=== PATIENT | male | born 1935 | race African-American/Black ===

== ENCOUNTER 2021-09-13 08:50 | Inpatient (IN) | payer MEDICARE, MEDICAID ==
[~2021-09-13] VITALS: Ht 177.8 cm; Wt 66.0 kg
[2021-09-13] VITALS (42 sets, daily range): BP systolic 109–148; BP diastolic 48–106
[~2021-09-13 08:50] MED LIST: ASPI-1497 MT; GLIP10TA10 MT; KEPP500 PO; POLY17PO3 PO; SITA25TA3 MT; SULF1TAB48 PO; TAMS-11 MT
[2021-09-13 09:27] LABS: BASOPHILS % 0.4 % (0.0-2.0); EOSINOPHILS % 0.6 % (0.0-5.0); HEMATOCRIT. 33.7 % (42.0-52.0); HEMOGLOBIN. 11.3 g/dL (14.0-18.0); LYMPHOCYTES % 37.6 % (20.0-50.0); MEAN CORPUSCULAR HEMOGLOBIN 30.8 pg (28.0-32.0); MEAN CORPUSCULAR VOLUME 91.9 fL (80.0-94.0); MEAN PLATELET VOLUME 7.5 fl (7.4-10.4); MONOCYTES % 5.1 % (2.0-8.0); NEUTROPHILS % 56.3 % (40.0-76.0); PLATELET 178 x1000/uL (130-400); RED BLOOD CELL COUNT 3.67 mill/uL (4.7-6.1); RED CELL DISTRIBUTION WIDTH 15.3 % (11.6-14.6)
[2021-09-13 09:31] LABS: CHLORIDE 103 mEq/L (98-107)
[2021-09-13] MEDS ORDERED: NICARDIPINE 100 MG in SODIUM CHLORIDE 0.9% 60 ML IV PRN ×3 (10:15→13:15)
[2021-09-13 11:23] LABS: INR 1.1; PROTHROMBIN TIME 11.9 sec (9.6-11.0)
[2021-09-13 12:32] LABS: CLARITY URINE CLEAR (CLEAR); COLOR URINE YELLOW (YELLOW); KETONES URINE NEGATIVE (NEGATIVE); LEUKOCYTE ESTERASE URINE TRACE (NEGATIVE); NITRITE URINE POSITIVE (NEGATIVE); OCCULT BLOOD URINE NEGATIVE (NEGATIVE); PROTEIN URINE 1+ (NEGATIVE); SPECIFIC GRAVITY URINE 1.012 (1.005-1.030); UROBILINOGEN URINE 0.2 E.U./dL (0.2-1.0)
[2021-09-13] MEDS ORDERED: CLONIDINE 0.1MG TABLET PO PRN (12:45)
[2021-09-13] MEDS ORDERED: ONDANSETRON HCL 4MG/2ML INJ IV PRN (12:45)
[2021-09-13] MEDS ORDERED: DIPHENHYDRAMINE 50MG/ML VIAL IV PRN (12:45)
[2021-09-13] MEDS ORDERED: SODIUM CHLORIDE 0.9% 1,000 ML IV SCH (12:45)
[2021-09-13] MEDS ORDERED: IPRATROPIUM/ALBUTEROL 0.5-3(2.5)MG/3ML NEB HHN PRN (12:45)
[2021-09-13] MEDS ORDERED: LEVETIRACETAM 500MG PREMIX 100 ML IV SCH (13:00)
[2021-09-13] MEDS ORDERED: MORPHINE SULFATE 2 MG/ML CPJ (NOT FOR IM USE) IV PRN (13:15)
[2021-09-13] MEDS ORDERED: NALOXONE HCL 0.4MG/ML VIAL IV PRN (13:30)
[2021-09-13] MEDS: DEXT 5%/LACTATED RINGERS 1,000 ML IV SCH (14:23)
[2021-09-13] MEDS: DEXAMETHASONE 4MG/ML 1ML VIAL IV SCH (17:25)
[2021-09-13] MEDS ORDERED: DEXTROSE 50% WATER 50ML SYRINGE IV PRN (18:45)
[2021-09-13] MEDS: INSULIN LISPRO 100 UNITS/ML SUBCUT SCH (21:59)
[2021-09-13] MEDS: BLOOD SUGAR DIAGNOSTIC STRIP TEST SCH (21:59)
[2021-09-14] VITALS (57 sets, daily range): BP systolic 96–153; BP diastolic 51–84
[2021-09-14] MEDS: DEXAMETHASONE 4MG/ML 1ML VIAL IV SCH ×5 (01:44→23:24)
[2021-09-14 05:38] LABS: HEMATOCRIT. 32.2 % (42.0-52.0); HEMOGLOBIN. 10.7 g/dL (14.0-18.0); LYMPHOCYTES % 27.8 % (20.0-50.0); MEAN CORPUSCULAR HEMOGLOBIN 30.5 pg (28.0-32.0); MEAN CORPUSCULAR VOLUME 92.2 fL (80.0-94.0); MEAN PLATELET VOLUME 7.8 fl (7.4-10.4); MONOCYTES % 1.2 % (2.0-8.0); PLATELET 169 x1000/uL (130-400); RED BLOOD CELL COUNT 3.49 mill/uL (4.7-6.1); RED CELL DISTRIBUTION WIDTH 15.1 % (11.6-14.6)
[2021-09-14 05:41] LABS: CHLORIDE 104 mEq/L (98-107)
[2021-09-14] MEDS: DEXT 5%/LACTATED RINGERS 1,000 ML IV SCH ×2 (06:07→13:00)
[2021-09-14] MEDS: INSULIN LISPRO 100 UNITS/ML SUBCUT SCH ×4 (06:08→20:52)
[2021-09-14] MEDS: BLOOD SUGAR DIAGNOSTIC STRIP TEST SCH ×4 (06:08→20:48)
[2021-09-14] MEDS: LEVETIRACETAM 500MG PREMIX 100 ML IV SCH ×2 (06:11→17:05)
[2021-09-14] MEDS ORDERED: MANNITOL 20% (20GM/100ML) BAG 500ML PREMIX IV ONE (07:00)
[2021-09-14] MEDS ORDERED: MANNITOL 20% (20GM/100ML) BAG 500ML PREMIX IV NR (09:15)
[2021-09-14] MEDS ORDERED: CEFTRIAXONE 1 G PREMIX 50 ML IV SCH (10:30)
[2021-09-14] MEDS: CEFTRIAXONE 1,000 MG in DEXTROSE 5% WATER 50 ML IV SCH (11:16)
[2021-09-15] VITALS (77 sets, daily range): BP systolic 107–156; BP diastolic 51–101
[2021-09-15 05:13] LABS: BASOPHILS % 0.2 % (0.0-2.0); HEMATOCRIT. 30.9 % (42.0-52.0); HEMOGLOBIN. 10.4 g/dL (14.0-18.0); LYMPHOCYTES % 17.9 % (20.0-50.0); MEAN CORPUSCULAR HEMOGLOBIN 30.8 pg (28.0-32.0); MEAN CORPUSCULAR VOLUME 91.6 fL (80.0-94.0); MEAN PLATELET VOLUME 7.9 fl (7.4-10.4); NEUTROPHILS % 80.9 % (40.0-76.0); PLATELET 154 x1000/uL (130-400); RED BLOOD CELL COUNT 3.37 mill/uL (4.7-6.1); RED CELL DISTRIBUTION WIDTH 15.3 % (11.6-14.6)
[2021-09-15 05:38] LABS: CHLORIDE 105 mEq/L (98-107)
[2021-09-15] MEDS: LEVETIRACETAM 500MG PREMIX 100 ML IV SCH ×2 (05:51→17:25)
[2021-09-15] MEDS: DEXAMETHASONE 4MG/ML 1ML VIAL IV SCH ×3 (05:51→17:25)
[2021-09-15] MEDS: BLOOD SUGAR DIAGNOSTIC STRIP TEST SCH ×4 (05:51→21:38)
[2021-09-15] MEDS: DEXT 5%/LACTATED RINGERS 1,000 ML IV SCH ×2 (05:52→23:02)
[2021-09-15] MEDS: INSULIN LISPRO 100 UNITS/ML SUBCUT SCH ×4 (06:01→21:38)
[2021-09-15] MEDS: CEFTRIAXONE 1,000 MG in DEXTROSE 5% WATER 50 ML IV SCH (12:18)
[2021-09-16] VITALS (47 sets, daily range): BP systolic 109–170; BP diastolic 53–102
[2021-09-16] MEDS: LEVETIRACETAM 500MG PREMIX 100 ML IV SCH ×2 (06:24→18:19)
[2021-09-16] MEDS: BLOOD SUGAR DIAGNOSTIC STRIP TEST SCH ×4 (06:24→21:15)
[2021-09-16] MEDS: INSULIN LISPRO 100 UNITS/ML SUBCUT SCH ×4 (06:27→21:00)
[2021-09-16] MEDS ORDERED: DEXTROSE 50% WATER 50ML SYRINGE IV PRN (11:00)
[2021-09-16] MEDS: CEFTRIAXONE 1,000 MG in DEXTROSE 5% WATER 50 ML IV SCH (12:07)
[2021-09-16] MEDS: SODIUM CHLORIDE 0.9% 1,000 ML IV SCH (12:07)
[2021-09-16] MEDS: AMLODIPINE 5MG TABLET PO SCH (13:46)
[2021-09-17] VITALS (20 sets, daily range): BP systolic 114–150; BP diastolic 58–75
[2021-09-17] MEDS: BLOOD SUGAR DIAGNOSTIC STRIP TEST SCH ×4 (06:00→20:40)
[2021-09-17] MEDS: LEVETIRACETAM 500MG PREMIX 100 ML IV SCH ×2 (06:20→17:42)
[2021-09-17] MEDS: SODIUM CHLORIDE 0.9% 1,000 ML IV SCH ×2 (06:20→21:23)
[2021-09-17] MEDS: INSULIN LISPRO 100 UNITS/ML SUBCUT SCH ×4 (06:22→21:24)
[2021-09-17 06:33] LABS: CHLORIDE 110 mEq/L (98-107)
[2021-09-17 07:40] LABS: BASOPHILS % 0.1 % (0.0-2.0); EOSINOPHILS % 0.1 % (0.0-5.0); HEMATOCRIT. 29.4 % (42.0-52.0); HEMOGLOBIN. 9.7 g/dL (14.0-18.0); LYMPHOCYTES % 29.2 % (20.0-50.0); MEAN CORPUSCULAR HEMOGLOBIN 31.2 pg (28.0-32.0); MEAN CORPUSCULAR VOLUME 94.1 fL (80.0-94.0); MEAN PLATELET VOLUME 8.7 fl (7.4-10.4); MONOCYTES % 4.8 % (2.0-8.0); NEUTROPHILS % 65.8 % (40.0-76.0); PLATELET 138 x1000/uL (130-400); RED BLOOD CELL COUNT 3.12 mill/uL (4.7-6.1); RED CELL DISTRIBUTION WIDTH 15.5 % (11.6-14.6)
[2021-09-17] MEDS: AMLODIPINE 5MG TABLET PO SCH (09:51)
[2021-09-17] MEDS: HYDRALAZINE HCL 25MG TABLET PO SCH ×2 (12:30→20:57)
[2021-09-17] MEDS ORDERED: DOPAMINE 400MG/250ML PREMIX 250 ML IV PRN (12:45)
[2021-09-18] VITALS (12 sets, daily range): BP systolic 127–159; BP diastolic 64–74
[2021-09-18 06:22] LABS: BASOPHILS % 0.1 % (0.0-2.0); EOSINOPHILS % 0.6 % (0.0-5.0); HEMATOCRIT. 30.1 % (42.0-52.0); HEMOGLOBIN. 10.2 g/dL (14.0-18.0); LYMPHOCYTES % 41.8 % (20.0-50.0); MEAN CORPUSCULAR VOLUME 91.6 fL (80.0-94.0); MEAN PLATELET VOLUME 7.9 fl (7.4-10.4); MONOCYTES % 5.5 % (2.0-8.0); PLATELET 140 x1000/uL (130-400); RED BLOOD CELL COUNT 3.29 mill/uL (4.7-6.1); RED CELL DISTRIBUTION WIDTH 14.6 % (11.6-14.6)
[2021-09-18 06:34] LABS: CHLORIDE 104 mEq/L (98-107)
[2021-09-18] MEDS: BLOOD SUGAR DIAGNOSTIC STRIP TEST SCH ×4 (07:35→20:15)
[2021-09-18] MEDS: INSULIN LISPRO 100 UNITS/ML SUBCUT SCH ×4 (08:42→20:43)
[2021-09-18] MEDS: HYDRALAZINE HCL 25MG TABLET PO SCH ×2 (08:51→20:43)
[2021-09-18] MEDS: LEVETIRACETAM 500MG PREMIX 100 ML IV SCH ×2 (08:51→20:42)
[2021-09-18] MEDS: AMLODIPINE 5MG TABLET PO SCH (08:51)
[2021-09-18] MEDS ORDERED: POTASSIUM CHLORIDE INJ 40 MEQ in DEXT 5% WATER 250 ML IV ONE (10:30)
[2021-09-18] MEDS: KCL 20MEQ/100ML X 2 FOR TOTAL KCL 40MEQ/200ML IV SCH ×2 (11:59→14:09)
[2021-09-18] MEDS: SODIUM CHLORIDE 0.9% 1,000 ML IV SCH (20:42)
[2021-09-19] VITALS (10 sets, daily range): BP systolic 128–158; BP diastolic 56–81
[2021-09-19 06:53] LABS: BASOPHILS % 0.1 % (0.0-2.0); EOSINOPHILS % 0.9 % (0.0-5.0); HEMATOCRIT. 32.2 % (42.0-52.0); HEMOGLOBIN. 11.1 g/dL (14.0-18.0); LYMPHOCYTES % 41.3 % (20.0-50.0); MEAN CORPUSCULAR HEMOGLOBIN 31.1 pg (28.0-32.0); MEAN CORPUSCULAR VOLUME 90.6 fL (80.0-94.0); MEAN PLATELET VOLUME 7.7 fl (7.4-10.4); NEUTROPHILS % 51.7 % (40.0-76.0); PLATELET 155 x1000/uL (130-400); RED BLOOD CELL COUNT 3.56 mill/uL (4.7-6.1); RED CELL DISTRIBUTION WIDTH 14.4 % (11.6-14.6)
[2021-09-19 07:15] LABS: CHLORIDE 102 mEq/L (98-107)
[2021-09-19] MEDS: BLOOD SUGAR DIAGNOSTIC STRIP TEST SCH ×4 (07:30→20:57)
[2021-09-19] MEDS: INSULIN LISPRO 100 UNITS/ML SUBCUT SCH ×4 (08:00→20:55)
[2021-09-19] MEDS: LEVETIRACETAM 500MG PREMIX 100 ML IV SCH ×2 (10:09→20:57)
[2021-09-19] MEDS: ACETAMINOPHEN 325MG TABLET PO PRN (10:38)
[2021-09-19] MEDS: HYDRALAZINE HCL 25MG TABLET PO SCH ×2 (10:39→20:56)
[2021-09-19] MEDS: AMLODIPINE 5MG TABLET PO SCH (10:39)
[2021-09-19] MEDS ORDERED: POTASSIUM CHLORIDE 20MEQ TABLET SR PO NR (12:30)
[2021-09-20] VITALS: BP 145/70
[2021-09-20 04:00] VITALS: BP 151/76
[2021-09-20] MEDS: SODIUM CHLORIDE 0.9% 1,000 ML IV SCH ×2 (05:37→05:38)
[2021-09-20] MEDS: BLOOD SUGAR DIAGNOSTIC STRIP TEST SCH ×4 (07:30→21:10)
[2021-09-20 08:00] VITALS: BP 126/52
[2021-09-20] MEDS: INSULIN LISPRO 100 UNITS/ML SUBCUT SCH ×4 (08:00→21:14)
[2021-09-20] MEDS: ACETAMINOPHEN 325MG TABLET PO PRN (08:50)
[2021-09-20] MEDS: AMLODIPINE 5MG TABLET PO SCH (08:51)
[2021-09-20] MEDS: HYDRALAZINE 20MG/ML VIAL IV PRN (08:52)
[2021-09-20] MEDS: LEVETIRACETAM 500MG PREMIX 100 ML IV SCH ×2 (09:05→21:09)
[2021-09-20 12:00] VITALS: BP 127/53
[2021-09-20] MEDS: HYDRALAZINE HCL 25MG TABLET PO SCH ×2 (12:37→21:09)
[2021-09-20 16:00] VITALS: BP 133/68
[2021-09-20 20:00] VITALS: BP 137/72
[2021-09-21] VITALS: BP 120/61
[2021-09-21 04:00] VITALS: BP 140/68
[2021-09-21] MEDS: SODIUM CHLORIDE 0.9% 1,000 ML IV SCH ×2 (06:41→16:12)
[2021-09-21] MEDS: BLOOD SUGAR DIAGNOSTIC STRIP TEST SCH ×4 (07:49→21:38)
[2021-09-21] MEDS: INSULIN LISPRO 100 UNITS/ML SUBCUT SCH ×4 (07:50→21:37)
[2021-09-21 08:00] VITALS: BP 151/65
[2021-09-21] MEDS: LEVETIRACETAM 500MG PREMIX 100 ML IV SCH ×2 (08:34→21:37)
[2021-09-21] MEDS: HYDRALAZINE HCL 25MG TABLET PO SCH ×2 (08:34→21:38)
[2021-09-21] MEDS: AMLODIPINE 5MG TABLET PO SCH (08:34)
[2021-09-21 12:00] VITALS: BP 153/67
[2021-09-21] MEDS ORDERED: HYDR-4134 PO (14:43)
[2021-09-21] MEDS ORDERED: METF-414 PO (14:43)
[2021-09-21] MEDS ORDERED: AMLO5TAB88 PO ×2 (14:43)
[2021-09-21 16:00] VITALS: BP 129/65
[2021-09-21] MEDS: METFORMIN HCL 500MG TABLET PO SCH (17:33)
[2021-09-21 20:00] VITALS: BP 135/68
[2021-09-22] VITALS: BP 137/64
[2021-09-22 04:00] VITALS: BP 145/58
[2021-09-22] MEDS: BLOOD SUGAR DIAGNOSTIC STRIP TEST SCH ×4 (07:30→21:57)
[2021-09-22 08:00] VITALS: BP 130/65
[2021-09-22] MEDS: INSULIN LISPRO 100 UNITS/ML SUBCUT SCH ×4 (08:00→21:59)
[2021-09-22] MEDS: LEVETIRACETAM 500MG PREMIX 100 ML IV SCH ×2 (09:52→21:49)
[2021-09-22] MEDS: HYDRALAZINE HCL 25MG TABLET PO SCH ×2 (09:53→21:58)
[2021-09-22] MEDS: AMLODIPINE 5MG TABLET PO SCH (09:53)
[2021-09-22] MEDS: METFORMIN HCL 500MG TABLET PO SCH ×2 (09:53→18:00)
[2021-09-22 12:00] VITALS: BP 147/69
[2021-09-22 15:35] VITALS: BP 137/63
[2021-09-22 20:00] VITALS: BP 142/71
[2021-09-23] VITALS: BP 130/59
[2021-09-23 04:00] VITALS: BP 144/67
[2021-09-23] MEDS: SODIUM CHLORIDE 0.9% 1,000 ML IV SCH (05:59)
[2021-09-23] MEDS: BLOOD SUGAR DIAGNOSTIC STRIP TEST SCH ×4 (07:30→21:00)
[2021-09-23 08:00] VITALS: BP 133/59
[2021-09-23] MEDS: HYDRALAZINE HCL 25MG TABLET PO SCH ×2 (09:00→21:43)
[2021-09-23] MEDS: METFORMIN HCL 500MG TABLET PO SCH ×2 (10:30→18:18)
[2021-09-23] MEDS: INSULIN LISPRO 100 UNITS/ML SUBCUT SCH ×4 (10:31→21:45)
[2021-09-23] MEDS: AMLODIPINE 5MG TABLET PO SCH (10:35)
[2021-09-23] MEDS: LEVETIRACETAM 500MG PREMIX 100 ML IV SCH ×2 (10:37→22:54)
[2021-09-23 12:00] VITALS: BP 138/62
[2021-09-23 16:00] VITALS: BP 147/69
[2021-09-23 20:00] VITALS: BP 146/65
[2021-09-24] VITALS: BP 128/68
[2021-09-24 04:00] VITALS: BP 128/61
[2021-09-24] MEDS: SODIUM CHLORIDE 0.9% 1,000 ML IV SCH (06:13)
[2021-09-24] MEDS: BLOOD SUGAR DIAGNOSTIC STRIP TEST SCH ×4 (06:14→21:00)
[2021-09-24] MEDS: INSULIN LISPRO 100 UNITS/ML SUBCUT SCH ×4 (07:51→21:28)
[2021-09-24] MEDS: METFORMIN HCL 500MG TABLET PO SCH ×2 (08:59→18:08)
[2021-09-24] MEDS: LEVETIRACETAM 500MG PREMIX 100 ML IV SCH ×2 (08:59→21:32)
[2021-09-24] MEDS: AMLODIPINE 5MG TABLET PO SCH (09:00)
[2021-09-24] MEDS: HYDRALAZINE HCL 25MG TABLET PO SCH ×2 (09:00→21:26)
[2021-09-24 12:00] VITALS: BP 140/64
[2021-09-24 16:00] VITALS: BP 147/59
[2021-09-24 20:20] VITALS: BP 153/111
[2021-09-25] VITALS (7 sets, daily range): BP systolic 128–146; BP diastolic 55–59
[2021-09-25] MEDS: SODIUM CHLORIDE 0.9% 1,000 ML IV SCH (06:23)
[2021-09-25] MEDS: BLOOD SUGAR DIAGNOSTIC STRIP TEST SCH ×4 (06:24→21:17)
[2021-09-25] MEDS: INSULIN LISPRO 100 UNITS/ML SUBCUT SCH ×4 (08:10→21:08)
[2021-09-25] MEDS: METFORMIN HCL 500MG TABLET PO SCH ×2 (08:29→18:10)
[2021-09-25] MEDS: AMLODIPINE 5MG TABLET PO SCH (08:29)
[2021-09-25] MEDS: HYDRALAZINE HCL 25MG TABLET PO SCH ×2 (08:29→21:17)
[2021-09-25] MEDS: LEVETIRACETAM 500MG PREMIX 100 ML IV SCH ×2 (08:29→21:07)
[2021-09-26] VITALS: BP 124/53
[2021-09-26 04:00] VITALS: BP 136/57
[2021-09-26] MEDS: BLOOD SUGAR DIAGNOSTIC STRIP TEST SCH ×4 (06:29→21:43)
[2021-09-26] MEDS: SODIUM CHLORIDE 0.9% 1,000 ML IV SCH (06:29)
[2021-09-26 08:00] VITALS: BP 151/65
[2021-09-26] MEDS: INSULIN LISPRO 100 UNITS/ML SUBCUT SCH ×4 (08:10→21:00)
[2021-09-26] MEDS: LEVETIRACETAM 500MG PREMIX 100 ML IV SCH ×2 (10:47→21:42)
[2021-09-26] MEDS: HYDRALAZINE HCL 25MG TABLET PO SCH ×2 (10:47→21:42)
[2021-09-26] MEDS: METFORMIN HCL 500MG TABLET PO SCH ×2 (10:47→16:44)
[2021-09-26] MEDS: AMLODIPINE 5MG TABLET PO SCH (10:48)
[2021-09-26] MEDS ORDERED: POLY119P2 MT (12:35)
[2021-09-26] MEDS ORDERED: BISA10SU62 RC (12:35)
[2021-09-26] MEDS ORDERED: NA PHOS,M-B/NA PHOS,DI-BA ENEMA 118ML PR ONE (14:30)
[2021-09-26] MEDS: LACTULOSE 20G/30ML UDC PO PRN ×3 (15:48→21:40)
[2021-09-26 16:00] VITALS: BP 140/63
[2021-09-26 20:00] VITALS: BP 142/69
[2021-09-27] VITALS: BP 164/70
[2021-09-27] MEDS: HYDRALAZINE 20MG/ML VIAL IV PRN (01:31)
[2021-09-27 04:00] VITALS: BP 144/67
[2021-09-27] MEDS: SODIUM CHLORIDE 0.9% 1,000 ML IV SCH (06:29)
[2021-09-27] MEDS: BLOOD SUGAR DIAGNOSTIC STRIP TEST SCH ×3 (06:29→17:54)
[2021-09-27 08:00] VITALS: BP 159/87
[2021-09-27] MEDS: METFORMIN HCL 500MG TABLET PO SCH ×2 (08:10→17:54)
[2021-09-27] MEDS: INSULIN LISPRO 100 UNITS/ML SUBCUT SCH ×3 (08:10→17:55)
[2021-09-27] MEDS: LEVETIRACETAM 500MG PREMIX 100 ML IV SCH (09:23)
[2021-09-27] MEDS: HYDRALAZINE HCL 25MG TABLET PO SCH (09:25)
[2021-09-27] MEDS: AMLODIPINE 5MG TABLET PO SCH (09:26)
[2021-09-27] MEDS ORDERED: AMLO5TAB88 PO (11:13)
[2021-09-27 12:00] VITALS: BP 143/67
[2021-09-27 16:00] VITALS: BP 140/60
[2021-09-27] MEDS ORDERED: AMLODIPINE 5MG TABLET PO SCH (17:00)
[2021-09-27 17:25] VITALS: BP 128/58
== END 2021-09-27 19:45 | disposition home health service (06) | DRG 64 ==
LOC: ER 08:50 → MICUNO 11:32 → EDBEDREQ 12:01 → ENRESERV 12:20 → MICUSO 09-16 11:20 → 5EST 09-17 14:24 → 7WST 09-23 11:49
PROVIDERS: ADMIT Internal Medicine; ATTEND Internal Medicine
DX: I63.40 Cerebral infarction due to embolism of unspecified cerebral artery (principal); I62.00 Nontraumatic subdural hemorrhage, unspecified; I61.9 Nontraumatic intracerebral hemorrhage, unspecified; G93.6 Cerebral edema; I16.1 Hypertensive emergency; G93.40 Encephalopathy, unspecified; E46 Unspecified protein-calorie malnutrition; I69.951 Hemiplegia and hemiparesis following unspecified cerebrovascular disease affecting right dominant side; Z20.822 Contact with and (suspected) exposure to COVID-19; R47.01 Aphasia; E11.9 Type 2 diabetes mellitus without complications; I10 Essential (primary) hypertension; E87.6 Hypokalemia; N40.0 Benign prostatic hyperplasia without lower urinary tract symptoms; Z68.20 Body mass index [BMI] 20.0-20.9, adult; Z79.82 Long term (current) use of aspirin; R50.9 Fever, unspecified
CPT/HCPCS: 36415; 71045; 74018; 80048; 80053; 81003; 82962; 83036; 84145; 84443; 84484; 85025; 87426; 92610; 93005; 93306; 93970; 97110; 97162; 97166; 97530; 97535; 99291; J0360; J0696; J1100; J1815; J1953; J3480; J3490; J7030; J7050; J7060; J7121

== ENCOUNTER 2021-12-19 06:20 | Inpatient (IN) | payer MEDICARE, MEDICAID ==
[~2021-12-19] VITALS: Ht 182.9 cm; Wt 59.4 kg
[~2021-12-19 06:20] MED LIST changes: +AMLO5TAB88 PO; -ASPI-1497 MT; +BISA10SU62 RC; +HYDR-4134 PO; +METF-414 PO; +POLY119P2 MT; -SULF1TAB48 PO
[2021-12-19] MEDS ORDERED: AMPICILLIN SOD/SULBACTAM NA 3 G in SODIUM CHLORIDE 0.9% 100 ML IV SCH (09:30)
[2021-12-19 10:20] LABS: BASOPHILS % 0.4 % (0.0-2.0); EOSINOPHILS % 0.3 % (0.0-5.0); HEMATOCRIT. 31.4 % (42.0-52.0); HEMOGLOBIN. 10.5 g/dL (14.0-18.0); LYMPHOCYTES % 23.8 % (20.0-50.0); MEAN CORPUSCULAR HEMOGLOBIN 31.4 pg (28.0-32.0); MEAN CORPUSCULAR VOLUME 93.8 fL (80.0-94.0); MEAN PLATELET VOLUME 7.2 fl (7.4-10.4); MONOCYTES % 4.5 % (2.0-8.0); PLATELET 217 x1000/uL (130-400); RED BLOOD CELL COUNT 3.34 mill/uL (4.7-6.1); RED CELL DISTRIBUTION WIDTH 14.2 % (11.6-14.6)
[2021-12-19 10:26] LABS: CHLORIDE 95 mEq/L (98-107)
[2021-12-19] MEDS ORDERED: SODIUM CHLORIDE 0.9% 1000ML BAG (SEPSIS BOLUS) IV ONE (11:00)
[2021-12-19 15:27] LABS: CLARITY URINE CLEAR (CLEAR); COLOR URINE YELLOW (YELLOW); KETONES URINE NEGATIVE (NEGATIVE); LEUKOCYTE ESTERASE URINE 1+ (NEGATIVE); NITRITE URINE NEGATIVE (NEGATIVE); OCCULT BLOOD URINE NEGATIVE (NEGATIVE); PH URINE 5.5 (4.5-8.0); PROTEIN URINE 1+ (NEGATIVE); UROBILINOGEN URINE 0.2 E.U./dL (0.2-1.0)
[2021-12-19 17:00] VITALS: BP 124/78
[2021-12-19] MEDS ORDERED: DEXTROSE 50% WATER 50ML SYRINGE IV PRN (17:45)
[2021-12-19] MEDS ORDERED: ENOXAPARIN 40MG/0.4ML SYR SUBCUT SCH (17:45)
[2021-12-19] MEDS ORDERED: GUAIFENESIN 200MG/10ML SUGAR FREE UDC PO PRN (17:45)
[2021-12-19] MEDS ORDERED: PIPERACILLIN/TAZ 3.375G PREMIX 50 ML IV SCH (17:45)
[2021-12-19] MEDS ORDERED: MAGNESIUM/ALUMINUM HYDROXIDE/SIMETHICONE 30ML UDC PO PRN (17:45)
[2021-12-19] MEDS ORDERED: CLONIDINE 0.1MG TABLET PO PRN (17:45)
[2021-12-19] MEDS ORDERED: VANCOMYCIN 1G PREMIX 200 ML IV SCH (17:45)
[2021-12-19] MEDS ORDERED: ACETAMINOPHEN 325MG TABLET PO PRN ×2 (17:45)
[2021-12-19] MEDS ORDERED: DIPHENHYDRAMINE 50MG/ML VIAL IV PRN (17:45)
[2021-12-19] MEDS ORDERED: ONDANSETRON HCL 4MG/2ML INJ IV PRN (17:45)
[2021-12-19] MEDS: BLOOD SUGAR DIAGNOSTIC STRIP TEST SCH ×2 (18:19→20:33)
[2021-12-19] MEDS: ENOXAPARIN 30MG/0.3ML SYR SUBCUT SCH (18:28)
[2021-12-19] MEDS: INSULIN LISPRO 100 UNITS/ML SUBCUT SCH ×2 (18:30→20:33)
[2021-12-19 20:00] VITALS: BP 125/54
[2021-12-19] MEDS ORDERED: VANCOMYCIN 1GM PMX (XELLIA) 200 ML IV NR (20:00)
[2021-12-19] MEDS: LEVETIRACETAM 500MG/5ML CUP PO SCH (20:32)
[2021-12-19] MEDS: AMLODIPINE 5MG TABLET PO SCH (20:39)
[2021-12-19] MEDS ORDERED: ZOLPIDEM TARTRATE 5MG TABLET PO PRN (21:00)
[2021-12-19] MEDS: PIPERACILLIN/TAZOBACTAM 3.375G in DEXT 5% WATER 50ML IV SCH (22:17)
[2021-12-19] MEDS: SODIUM CHLORIDE 0.9% INJ 3ML FLUSH IVF SCH (22:17)
[2021-12-20] VITALS: BP 144/58
[2021-12-20 04:00] VITALS: BP 114/66
[2021-12-20] MEDS: PIPERACILLIN/TAZOBACTAM 3.375G in DEXT 5% WATER 50ML IV SCH ×3 (05:33→21:08)
[2021-12-20] MEDS: SODIUM CHLORIDE 0.9% INJ 3ML FLUSH IVF SCH ×3 (05:33→22:00)
[2021-12-20] MEDS: BLOOD SUGAR DIAGNOSTIC STRIP TEST SCH ×4 (05:43→21:05)
[2021-12-20] MEDS: INSULIN LISPRO 100 UNITS/ML SUBCUT SCH ×4 (07:50→21:07)
[2021-12-20 08:00] VITALS: BP 117/61
[2021-12-20] MEDS: LEVETIRACETAM 500MG/5ML CUP PO SCH ×2 (08:30→21:07)
[2021-12-20] MEDS: AMLODIPINE 5MG TABLET PO SCH ×2 (08:31→21:07)
[2021-12-20] MEDS: VANCOMYCIN 750MG PMX (XELLIA) 150 ML IV SCH (10:57)
[2021-12-20 12:00] VITALS: BP_SYST 153; BP_SYST 98; BP_DIAS 59; BP_DIAS 85
[2021-12-20 16:00] VITALS: BP 129/54
[2021-12-20] MEDS: ENOXAPARIN 30MG/0.3ML SYR SUBCUT SCH (17:41)
[2021-12-20 20:00] VITALS: BP 136/61
[2021-12-21] VITALS: BP 124/53
[2021-12-21 04:00] VITALS: BP 126/67
[2021-12-21] MEDS: PIPERACILLIN/TAZOBACTAM 3.375G in DEXT 5% WATER 50ML IV SCH ×3 (05:23→21:35)
[2021-12-21] MEDS: BLOOD SUGAR DIAGNOSTIC STRIP TEST SCH ×4 (07:51→20:22)
[2021-12-21 08:00] VITALS: BP 133/58
[2021-12-21 08:15] LABS: BASOPHILS % 0.3 % (0.0-2.0); EOSINOPHILS % 0.9 % (0.0-5.0); HEMATOCRIT. 27.8 % (42.0-52.0); HEMOGLOBIN. 9.5 g/dL (14.0-18.0); LYMPHOCYTES % 31.8 % (20.0-50.0); MEAN CORPUSCULAR HEMOGLOBIN 31.3 pg (28.0-32.0); MEAN CORPUSCULAR VOLUME 91.7 fL (80.0-94.0); MEAN PLATELET VOLUME 7.1 fl (7.4-10.4); MONOCYTES % 4.8 % (2.0-8.0); NEUTROPHILS % 62.2 % (40.0-76.0); PLATELET 211 x1000/uL (130-400); RED BLOOD CELL COUNT 3.03 mill/uL (4.7-6.1); RED CELL DISTRIBUTION WIDTH 14.1 % (11.6-14.6)
[2021-12-21] MEDS: AMLODIPINE 5MG TABLET PO SCH ×2 (09:44→20:33)
[2021-12-21] MEDS: LEVETIRACETAM 500MG/5ML CUP PO SCH ×2 (09:44→20:33)
[2021-12-21] MEDS: VANCOMYCIN 750MG PMX (XELLIA) 150 ML IV SCH (09:45)
[2021-12-21] MEDS: INSULIN LISPRO 100 UNITS/ML SUBCUT SCH ×4 (09:54→20:33)
[2021-12-21] MEDS: POTASSIUM CHLORIDE 20MEQ TABLET SR PO SCH ×2 (11:09→13:49)
[2021-12-21 12:00] VITALS: BP 116/66
[2021-12-21] MEDS ORDERED: POTASSIUM CHLORIDE INJ 40 MEQ in DEXT 5% WATER 500 ML IV NR (12:00)
[2021-12-21] MEDS: SODIUM CHLORIDE 0.9% INJ 3ML FLUSH IVF SCH ×2 (14:52→21:34)
[2021-12-21 16:00] VITALS: BP 110/60
[2021-12-21] MEDS ORDERED: POTASSIUM CHLORIDE 20MEQ TABLET SR PO NR (16:15)
[2021-12-21] MEDS: ENOXAPARIN 30MG/0.3ML SYR SUBCUT SCH (18:00)
[2021-12-21 20:00] VITALS: BP 133/60
[2021-12-22] VITALS: BP 131/62
[2021-12-22 04:00] VITALS: BP 131/65
[2021-12-22] MEDS: PIPERACILLIN/TAZOBACTAM 3.375G in DEXT 5% WATER 50ML IV SCH ×3 (05:26→22:25)
[2021-12-22] MEDS: SODIUM CHLORIDE 0.9% INJ 3ML FLUSH IVF SCH ×3 (05:31→22:43)
[2021-12-22] MEDS: BLOOD SUGAR DIAGNOSTIC STRIP TEST SCH ×4 (05:34→21:00)
[2021-12-22 08:00] VITALS: BP 143/77
[2021-12-22] MEDS: AMLODIPINE 5MG TABLET PO SCH ×2 (09:52→22:25)
[2021-12-22] MEDS: LEVETIRACETAM 500MG/5ML CUP PO SCH ×2 (09:52→22:25)
[2021-12-22] MEDS: VANCOMYCIN 750MG PMX (XELLIA) 150 ML IV SCH (09:53)
[2021-12-22] MEDS: INSULIN LISPRO 100 UNITS/ML SUBCUT SCH ×4 (10:04→22:42)
[2021-12-22 12:00] VITALS: BP 130/60
[2021-12-22 16:00] VITALS: BP 126/63
[2021-12-22 20:00] VITALS: BP 119/58
[2021-12-23] VITALS: BP 126/62
[2021-12-23 04:00] VITALS: BP 118/58
[2021-12-23] MEDS: PIPERACILLIN/TAZOBACTAM 3.375G in DEXT 5% WATER 50ML IV SCH ×3 (07:08→21:00)
[2021-12-23] MEDS: SODIUM CHLORIDE 0.9% INJ 3ML FLUSH IVF SCH ×3 (07:08→20:35)
[2021-12-23] MEDS: BLOOD SUGAR DIAGNOSTIC STRIP TEST SCH ×4 (07:22→20:33)
[2021-12-23] MEDS: INSULIN LISPRO 100 UNITS/ML SUBCUT SCH ×4 (07:49→20:34)
[2021-12-23 08:00] VITALS: BP 98/47
[2021-12-23] MEDS: AMLODIPINE 5MG TABLET PO SCH ×2 (09:00→20:33)
[2021-12-23] MEDS ORDERED: POTASSIUM CHLORIDE 20MEQ TABLET SR PO NR ×4 (09:15→12:15)
[2021-12-23] MEDS: LEVETIRACETAM 500MG/5ML CUP PO SCH ×2 (09:24→20:33)
[2021-12-23] MEDS: VANCOMYCIN 750MG PMX (XELLIA) 150 ML IV SCH (09:25)
[2021-12-23] MEDS ORDERED: MAGNESIUM 2 G PREMIX 50 ML IV NR (11:00)
[2021-12-23 12:00] VITALS: BP 98/62
[2021-12-23 16:00] VITALS: BP 102/57
[2021-12-23 20:00] VITALS: BP 112/69
[2021-12-24] VITALS: BP 128/65
[2021-12-24] MEDS: POTASSIUM CHLORIDE 20MEQ TABLET SR PO SCH ×2 (01:00→05:00)
[2021-12-24 04:00] VITALS: BP 134/68
[2021-12-24] MEDS: PIPERACILLIN/TAZOBACTAM 3.375G in DEXT 5% WATER 50ML IV SCH ×2 (05:02→15:40)
[2021-12-24] MEDS: BLOOD SUGAR DIAGNOSTIC STRIP TEST SCH ×2 (07:20→12:50)
[2021-12-24] MEDS: INSULIN LISPRO 100 UNITS/ML SUBCUT SCH ×2 (07:50→14:15)
[2021-12-24 08:00] VITALS: BP 114/72
[2021-12-24] MEDS: AMLODIPINE 5MG TABLET PO SCH (10:06)
[2021-12-24] MEDS: LEVETIRACETAM 500MG/5ML CUP PO SCH (10:06)
[2021-12-24] MEDS: VANCOMYCIN 750MG PMX (XELLIA) 150 ML IV SCH (10:06)
[2021-12-24 12:00] VITALS: BP 124/59
[2021-12-24] MEDS: POTASSIUM CHLORIDE 20MEQ/PACKET PO SCH ×2 (12:50→14:12)
== END 2021-12-24 16:58 | disposition home or self-care (01) | DRG 623 ==
LOC: ER 06:20 → 6EST 13:43 → ENRESERV 15:10
PROVIDERS: ADMIT Internal Medicine; ATTEND Internal Medicine
PROC: 0KBV0ZZ Excision of Right Foot Muscle, Open Approach (ICD-10-PCS; principal; 2021-12-20)
DX: E11.621 Type 2 diabetes mellitus with foot ulcer (principal); L97.419 Non-pressure chronic ulcer of right heel and midfoot with unspecified severity; M86.9 Osteomyelitis, unspecified; E11.69 Type 2 diabetes mellitus with other specified complication; I10 Essential (primary) hypertension; E87.6 Hypokalemia; Z86.73 Personal history of transient ischemic attack (TIA), and cerebral infarction without residual deficits; Z79.899 Other long term (current) drug therapy
CPT/HCPCS: 36415; 73630; 73721; 80048; 80051; 80053; 80202; 81003; 82962; 83036; 83605; 83735; 85025; 87070; 87077; 87186; 93923; 99291; J0295; J1650; J1815; J2543; J3370; J3475; J3480; J7030; J7050; J7060